=== PATIENT | female | born 1965 | race Two or more races ===

== ENCOUNTER → 2019-02-06 | Day surgery (SDC) | payer OTHER ==
--- NOTE | 2019-02-15 10:49 | PATH ---
Cytology Non-Gynecological Report Patient Name: DANIELLE DE PAZ [facility] [place]. Rec. #: [id number] /Age/Gender: 1965 (Age: 53) / F Account: [id number] Location: RADIOLOGY Taken: 02/06/2019 Received: 02/06/2019 Reported: 02/07/2019 Physicians: Mlian Crump M.D. Specimen(s) Received THYROID, LEFT, FINE NEEDLE ASPIRATION Clinical History Left thyroid nodule Final Diagnosis THYROID, LEFT, FINE NEEDLE ASPIRATION: UNSATISFACTORY FOR EVALUATION. [place] CLASS I: NON-DIAGNOSTIC. MOSTLY BLOOD PRESENT. Comment: The specimen has insufficient follicular cell clusters and/or colloid; and suboptimal for complete cytopathologic evaluation according to [employer] [facility] System for Reporting Thyroid FNA. If the nodule has worrisome ultrasound imaging properties, suggest repeat FNA, as warranted. Electronically Signed Marina Wheeler M.D. Gross Description Received are four direct smears, two of which are air-dried and Diff-Quik stained, and two of which are alcohol fixed and Pap stained. Also received is 20 ml of bloody formalin from which one cellblock is prepared.
== END | disposition home or self-care (01) ==
LOC: EDSTATUS 09:30 → JRADIR 12:06
PROVIDERS: ATTEND Specialist
PROC: 0G9G3ZX Drainage of Left Thyroid Gland Lobe, Percutaneous Approach, Diagnostic (ICD-10-PCS; principal; 2019-02-06)
DX: E04.1 Nontoxic single thyroid nodule (principal)
CPT/HCPCS: 76942

== ENCOUNTER 2020-07-11 04:20 | Day surgery (SDC) | payer OTHER ==
[2020-07-10 16:00] VITALS: BMI 26.6
[2020-07-11] MEDS ORDERED: PROPOFOL 20 ML ONE (09:15)
[2020-07-11] MEDS ORDERED: LIDOCAINE HCL/PF 2% SDV 5ML VIAL ONE (09:15)
[2020-07-11] MEDS ORDERED: MIDAZOLAM HCL 2 MG/2 ML SINGLE DOSE VIAL ONE ×2 (09:15)
[2020-07-11] MEDS ORDERED: LIDOCAINE HCL 1% PRESERVATIVE FREE - 30ML VIAL IJ ONE ×2 (09:45)
[2020-07-11 12:07] VITALS: BP 125/73; PULSE 74; TEMP 97.8
== END 2020-07-11 12:30 | disposition home or self-care (01) ==
LOC: JASU-SURG 04:20
PROVIDERS: ATTEND Pain Medicine Pain Medicine
PROC: 01HY3MZ Insertion of Neurostimulator Lead into Peripheral Nerve, Percutaneous Approach (ICD-10-PCS; principal; 2020-07-11 08:45)
DX: G89.4 Chronic pain syndrome (principal)
CPT/HCPCS: 64555; C1778; 76000-TC-FY; 82962

== ENCOUNTER 2020-09-19 04:35 | Day surgery (SDC) | payer OTHER ==
[2020-09-17 17:07] VITALS: BMI 26.6
[2020-09-19] MEDS ORDERED: LIDOCAINE HCL/PF 1% SDV 5ML VIAL ONE (07:37)
[2020-09-19] MEDS ORDERED: LIDOCAINE HCL/PF 2% SDV 5ML VIAL ONE (07:39)
[2020-09-19] MEDS ORDERED: MIDAZOLAM HCL 2 MG/2 ML SINGLE DOSE VIAL ONE ×2 (13:08→13:39)
[2020-09-19] MEDS ORDERED: PROPOFOL 20 ML ONE (13:10)
[2020-09-19] MEDS ORDERED: SUCCINYLCHOLINE CHLORIDE 200 MG/10 ML SYRINGE ONE (13:10)
[2020-09-19 15:19] VITALS: TEMP 98
[2020-09-19 17:44] VITALS: PULSE 70
[2020-09-19 18:13] VITALS: BP 130/76
== END 2020-09-19 18:15 | disposition home or self-care (01) ==
LOC: JASU-SURG 04:35
PROVIDERS: ATTEND Pain Medicine Pain Medicine
PROC: 01HY3MZ Insertion of Neurostimulator Lead into Peripheral Nerve, Percutaneous Approach (ICD-10-PCS; principal; 2020-09-19 12:30)
DX: G89.4 Chronic pain syndrome (principal); M54.5 Low back pain
CPT/HCPCS: 64555; C1778; 76000-TC-FY

== ENCOUNTER 2020-11-28 04:08 | Day surgery (SDC) | payer OTHER ==
[2020-11-26 17:23] VITALS: BMI 26.6
[2020-11-28] MEDS ORDERED: LIDOCAINE HCL/PF 2% SDV 5ML VIAL ONE (12:24)
[2020-11-28] MEDS ORDERED: MIDAZOLAM HCL 2 MG/2 ML SINGLE DOSE VIAL ONE (12:24)
[2020-11-28] MEDS ORDERED: PROPOFOL 20 ML ONE (12:24)
[2020-11-28] MEDS ORDERED: BUPIVACAINE HCL/PF 0.5% (5 MG/ML) 30 ML VIAL IJ ONE (13:14)
[2020-11-28 15:40] VITALS: BP 135/69; PULSE 72; TEMP 98
== END 2020-11-28 17:00 | disposition home or self-care (01) ==
LOC: JASU-SURG 04:08
PROVIDERS: ATTEND Pain Medicine Pain Medicine
PROC: BR14YZZ Fluoroscopy of Cervical Facet Joint(s) using Other Contrast (ICD-10-PCS; 2020-11-28)
PROC: 3E0T3BZ Introduction of Anesthetic Agent into Peripheral Nerves and Plexi, Percutaneous Approach (ICD-10-PCS; principal; 2020-11-28 12:15)
DX: M47.812 Spondylosis without myelopathy or radiculopathy, cervical region (principal)
CPT/HCPCS: 76000-TC-FY; 94760

== ENCOUNTER 2020-12-30 04:42 | Day surgery (SDC) | payer OTHER ==
[2020-12-26 16:01] VITALS: BMI 26.6
[2020-12-30] MEDS ORDERED: DEXMEDETOMIDINE HCL 200 MCG/2 ML IVPB ONE (10:23)
[2020-12-30] MEDS ORDERED: MIDAZOLAM HCL 2 MG/2 ML SINGLE DOSE VIAL ONE (10:56)
[2020-12-30] MEDS ORDERED: KETAMINE HCL 200 MG/20 ML VIAL ONE (10:58)
[2020-12-30] MEDS ORDERED: ceFAZolin SODIUM 1 GM VIAL IVPB ONE (11:04)
[2020-12-30] MEDS ORDERED: LIDOCAINE 1% P/F 10 MG/ML VIAL SNB ONE (11:04)
[2020-12-30] MEDS ORDERED: LIDOCAINE HCL/PF 2% SDV 5ML VIAL PNB ONE (11:05)
[2020-12-30] MEDS ORDERED: ACETAMINOPHEN 1000 MG/100 ML VIAL IVPB ONE (14:17)
[2020-12-30] MEDS ORDERED: traMADol HCL 50 MG TABLET PO ONE (14:17)
[2020-12-30] MEDS ORDERED: ONDANSETRON 4 MG/2 ML VIAL IVPUSH PRN (14:17)
[2020-12-30] MEDS ORDERED: LACTATED RINGERS SOLUTION 1,000 ML IV SCH (14:30)
[2020-12-30] MEDS ORDERED: traMADol HCL 50 MG TABLET ONE (16:31)
[2020-12-30 17:30] VITALS: BP 129/70; PULSE 64; TEMP 98
== END 2020-12-30 18:00 | disposition home or self-care (01) ==
LOC: JASU-SURG 04:42
PROVIDERS: ATTEND Pain Medicine Pain Medicine
PROC: 01HY3MZ Insertion of Neurostimulator Lead into Peripheral Nerve, Percutaneous Approach (ICD-10-PCS; principal; 2020-12-30 10:30)
DX: M96.1 Postlaminectomy syndrome, not elsewhere classified (principal); G89.4 Chronic pain syndrome; E11.9 Type 2 diabetes mellitus without complications
CPT/HCPCS: 63650; C1897; 76000-TC-FY; 94760; J0131

== ENCOUNTER 2023-02-11 04:50 | Day surgery (SDC) | payer OTHER ==
[2023-02-09 12:47] VITALS: BMI 25.0
[2023-02-11 07:05] VITALS: RESP 20
[2023-02-11] MEDS ORDERED: LIDOCAINE HCL/PF 1% SDV 5ML VIAL ONE (07:11)
[2023-02-11] MEDS ORDERED: LIDOCAINE 1% P/F 10 MG/ML VIAL INF ONE ×2 (08:50)
[2023-02-11] MEDS ORDERED: ACETAMINOPHEN 500 MG TABLET (FP) ONE (09:24)
[2023-02-11] MEDS ORDERED: ACETAMINOPHEN 500 MG TABLET (FP) PO ONE (09:30)
[2023-02-11 09:45] VITALS: BP 143/84; PULSE 58; TEMP 97.6
[2023-02-11] MEDS ORDERED: ACETAMINOPHEN 500 MG TABLET (FP) PO PRN (10:01)
== END 2023-02-11 11:45 | disposition home or self-care (01) ==
LOC: JASU-SURG 04:50
PROVIDERS: ATTEND Pain Medicine Pain Medicine
PROC: 01HY0MZ Insertion of Neurostimulator Lead into Peripheral Nerve, Open Approach (ICD-10-PCS; principal; 2023-02-11 08:00)
DX: G89.4 Chronic pain syndrome (principal); M54.6 Pain in thoracic spine
CPT/HCPCS: 64555; C1778; 76000-TC-FY

== ENCOUNTER → 2023-03-25 | Day surgery (SDC) | payer OTHER ==
[2023-03-22 16:53] VITALS: BMI 24.6
[~2023-03-25] MED LIST: ACETAMINOPHEN 500 MG TABLET (FP) ONE; LIDOCAINE HCL/PF 1% SDV 5ML VIAL ONE; LIDOCAINE HCL/PF 2% SDV 5ML VIAL ONE
[2023-03-25 09:11] VITALS: RESP 18
[2023-03-25] MEDS: LIDOCAINE 1% P/F 10 MG/ML VIAL INF ONE ×3 (10:08)
[2023-03-25] MEDS: ACETAMINOPHEN 500 MG TABLET (FP) PO PRN (11:45)
[2023-03-25 12:46] VITALS: BP 118/71; PULSE 71; TEMP 98
== END | disposition home or self-care (01) ==
LOC: JASU-SURG 04:00
PROVIDERS: ATTEND Pain Medicine Pain Medicine
PROC: 01HY3MZ Insertion of Neurostimulator Lead into Peripheral Nerve, Percutaneous Approach (ICD-10-PCS; principal; 2023-03-25 10:15)
DX: G89.4 Chronic pain syndrome (principal)
CPT/HCPCS: 64555; C1778; 76000-TC-FY